=== PATIENT | male | born 1960 | race Caucasian/White ===

== ENCOUNTER 2019-03-09 22:23 | Inpatient (IN) | payer OTHER ==
--- NOTE | 2019-03-09 23:02 | ED ---
Shortness of Breath - HPI Summary HPI Summary: This pt is a 58 y/o M presenting to [facility] with a CC of SOB which has been persistent since the stat of February. 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 The cough started to get worse and caused him to become SOB while exerting himself. The symptoms worsened to when he started to become SOB walking around the house and laying down. He also states that he has CP due to the coughing, which is rated a 7/10 in severity, and he can feel sputum on his throat but his cough is nonproductive. He denies any fevers, N/V/D, headaches, diaphoresis, new edema, abdominal pain, and palpitations. He has no alleviating factors. He has a pertinent family history of HTN but states that he has no chronic diseases. 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 Maintenance - Onset/Duration: Gradual Onset, Lasting Weeks - present since the start of February, Still Present, Worse Since Timing: Constant Current Severity: Severe Dyspnea At: Exertion - Pt also has orthopena Aggravating Factors: Movement, Recumbent Position Alleviating Factors: Nothing Associated Signs & Symptoms: Negative - fevers, N/V/D, headaches, diaphoresis, new edema, abdominal pain, and palpitations., Cough (Nonproductive), Chest Pain w/Cough - Allergy/Home Medications Allergies/Adverse Reactions: Allergies Allergy/AdvReac Type Severity Reaction Status Date / Time No Known Allergies Allergy Verified 03/09/19 22:33 PMH/Surg Hx/FS Hx/Imm Hx Previously Healthy: Yes Infectious Disease History: No Infectious Disease History: Denies: Traveled Outside the [place] in Last 30 Days - Social History Alcohol Use: None Substance Use Type: Reports: None Review of Systems Negative: Fever, Skin Diaphoresis Positive: Chest Pain - from cough. Negative: Palpitations Positive: Shortness Of Breath, Cough - nonproductive Negative: Abdominal Pain, Vomiting, Diarrhea, Nausea Negative: Edema All Other Systems Reviewed And Are Negative: Yes Physical Exam - Summary Physical Exam Summary: Appearance: Well-appearing, Well-nourished, lying in bed comfortably Skin: Warm, dry, no obvious rash Eyes: sclera anicteric, no conjunctival pallor ENT: mucous membranes moist, pharynx appears normal Neck: Supple, nontender Respiratory: Clear to auscultation, no signs of respiratory distress Cardiovascular: Tachycardic No murmurs. Normal distal pulses in tibial and radial bilaterally. Abdomen: Soft, nontender, normal active bowel sounds present Musculoskeletal: Normal, Strength/ROM Intact Neurological: A&Ox3, awake and alert, mentation is normal, speech is fluent and appropriate Psychiatric: affect is normal, does not appear anxious or depressed Triage Information Reviewed: Yes Vital Signs On Initial Exam: Initial Vitals Temp Pulse Resp BP Pulse Ox 96.4 F 129 32 134/103 91 03/09/19 22:31 03/09/19 22:31 03/09/19 22:31 03/09/19 22:31 03/09/19 22:31 Vital Signs Reviewed: Yes Diagnostics - Vital Signs Vital Signs Temp Pulse Resp BP Pulse Ox 03/09/19 22:31 96.4 F 129 32 134/103 91 - Laboratory Result Diagrams: 03/09/19 23:07 03/10/19 06:46 Lab Statement: Any lab studies that have been ordered have been reviewed, and results considered in the medical decision making process. - Radiology CXR Radiology Interpretation Completed By: ED Physician Summary of Radiographic Findings: No acute pathologies. Pending offical review. - CT CT A/P CT Interpretation Completed By: Radiologist Summary of CT Findings: No filling defects suspicious for pulmonary emboli are seen. There is no CT evidence of aortic dissection nor leakage. No aortic aneurysm is appreciated. Focal nonspecific hazy RLL opacity --- possible small focal nonspecific RLL. pneumonitis, eg. No consolidation. Small bilateral pleural effusions. Cardiomegaly. Bilateral peribronchial thickening (possible diffuse bronchitic changes). ED Physician has reviewed this report. - EKG 2226 Cardiac Rate: Tachycardia - 129 BPM EKG Rhythm: Sinus Tachycardia Summary of EKG Findings: ST at 129 BPM, Anterior infarct in the Q wave, no STEMI. Interpreted by Dr. Whitman 222603/09/19. Course/Dx - Course Course Of Treatment: This pt is a 58 y/o M presenting to [facility] with a CC of SOB which has been persistent since the stat february. 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 The cough started to get worse and caused him to become SOB while exerting himself. His PE shows that he is tachycardic but otherwise there were no abnormal findings. His EKG shows ST at 129 BPM, Anterior infarct in the Q wave, no STEMI. His CXR shows no acute pathologies. His CT A/P shows No filling defects suspicious for pulmonary emboli are seen. There is no CT evidence of aortic dissection nor leakage. No aortic aneurysm is appreciated. Focal nonspecific hazy RLL opacity --- possible small focal nonspecific RLL. pneumonitis, eg. No consolidation. Small bilateral pleural effusions. Cardiomegaly. Bilateral peribronchial thickening (possible diffuse bronchitic changes). He has abnormal lab values of Abnormal lab values of a positive D-dimer, B-natriuretuc Peptide, BUN, Creatinine, BUN/Creatinine ratio. Pt's HR jumped up to 169 BPM at 0446 then lowered back down to 98 BPM at 0447 where it stabilized around 120 at 0448. Pt will be admitted to [facility] with a Dx of dysrhythmia - Diagnoses Provider Diagnoses: Dysrhythmia, CHF (congestive heart failure), Cardiomyopathy - Physician Notifications Discussed Care of Patient With: Herber Soto Time Discussed With Above Provider: 03:25 Instructed by Provider To: Other - Discussed with Dr. Soto, hospitalist, at 0325 about the pt's case and a request for an evaluation if he should be admitted to [facility]. Discharge - Sign-Out/Discharge Documenting (check all that apply): Patient Departure - admitted Patient Received Moderate/Deep Sedation with Procedure: No - Discharge Plan Condition: Stable Disposition: ADMITTED TO [facility] - Billing Disposition and Condition Condition: STABLE Disposition: Admitted to [facility] - Attestation Statements Document Initiated by Ady: Yes Documenting Scribe: Angelito Powell Provider For Whom Ady is Documenting (Include Credential): Grady Whitman MD Scribe Attestation: Angelito Guadarrama, baldeved for Grady Whitman MD on 03/10/19 at 6501. Scribe Documentation Reviewed: Yes Provider Attestation: The documentation as recorded by the Angelito riley accurately reflects the service I personally performed and the decisions made by me, Grady Whitman MD Status of Scribe Document: Viewed
[2019-03-09 23:15] LABS: ABS Basophils 0.1 10^3/ul (0-0.2); ABS Eosinophils 0.1 10^3/ul (0-0.6); ABS Lymphocytes 1.9 10^3/ul (1.0-4.8); ABS Monocytes 0.4 10^3/ul (0-0.8); ABS Neutrophils 6.3 10^3/ul (1.5-7.7); Eosinophil % 1.2 %; Hematocrit 50 % (42-52); Hemoglobin 16.9 g/dL (14.0-18.0); Lymphocyte % 21.4 %; Mean Corpuscular HGB Conc 34 g/dL (31-36); Mean Corpuscular Hemoglobin 30 pg (27-31); Mean Corpuscular Volume 89 fL (80-94); Mean Platelet Volume 9.3 fL (7.4-10.4); Nucleated Red Blood Cells % 0.2; Platelet Count 177 10^3/uL (150-450); Red Blood Count 5.58 10^6 /uL (4.18-5.48); Red Cell Distribution Width 13 % (10-15); White Blood Count 8.8 10^3/uL (3.5-10.8)
[2019-03-09 23:30] LABS: Albumin 3.9 g/dL (3.2-5.2); Albumin/Globulin Ratio 1.3 (1-3); BUN/Creatinine Ratio 20.3 (8-20); Calcium 9.9 mg/dL (8.6-10.3); EGFR African American 73.1 (>60); EGFR Non-African American 60.4 (>60); Globulin 2.9 g/dL (2-4); Total Bilirubin 0.5 mg/dL (0.2-1.0); Total Protein 6.8 g/dL (6.4-8.9)
[2019-03-09 23:32] LABS: Troponin I 0.01 ng/mL (<0.04)
[2019-03-09 23:58] LABS: Potassium 4.1 mmol/L (3.5-5.0)
[2019-03-10] MEDS ORDERED: Iohexol 350* (CONTRAST) 500 ML MDV IV ONE (01:14)
[2019-03-10] MEDS ORDERED: NS 0.9% 1000 ML** 1,000 ML IV ONE (06:04)
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
[2019-03-10 07:09] LABS: BUN/Creatinine Ratio 18.8 (8-20); Calcium 9.6 mg/dL (8.6-10.3); EGFR African American 91.8 (>60); EGFR Non-African American 75.9 (>60); HDL Cholesterol 32.4 mg/dL
[2019-03-10 08:24] LABS: Potassium 4.4 mmol/L (3.5-5.0)
[2019-03-10 08:42] LABS: Troponin I 0.01 ng/mL (<0.04)
[2019-03-10] MEDS: Insulin LISPRO* 1 UNITS UNIT SUBCUT SCH ×4 (10:02→21:41)
[2019-03-10 12:45] LABS: TSH (Thyroid Stimulating Horm) 4.58 mcIU/mL (0.34-5.60)
[2019-03-10] MEDS ORDERED: Perflutren Lipid Microsphere* 3 ML VIAL ONE (15:03)
--- NOTE | 2019-03-10 15:14 | PN ---
Subjective Date of Service: 03/10/19 Interval History: Mr. Camacho is not feeling any better today. His SOB remains unchanged. Worse with exertion and laying flat. This has been going on for at least 3 months, progressively worsening. He was very surprised to hear he is a diabetic and attributes this to his SOB even when told otherwise. He denies CP, N/V. No concerns from nursing. Family History: Unchanged from Admission Social History: Unchanged from Admission Past Medical History: Unchanged from Admission Objective Active Medications: Atorvastatin Calcium (Lipitor*) 40 mg PO 1700 [facility] Insulin Human Lispro (Humalog*) [address] [facility]; Protocol Metformin HCl (Glucophage*) 500 mg PO 0800,1700 [facility] Vital Signs - 8 hr 03/10/19 03/10/19 03/10/19 07:26 07:45 08:13 Temperature 98.0 F 97.5 F Pulse Rate 114 107 124 Respiratory 27 16 20 Rate Blood Pressure 105/82 115/81 140/85 (mmHg) O2 Sat by Pulse 94 95 97 Oximetry 03/10/19 11:29 Temperature 97.6 F Pulse Rate 58 Respiratory 22 Rate Blood Pressure 136/93 (mmHg) O2 Sat by Pulse 99 Oximetry Oxygen Devices in Use Now: None Appearance: Middle-aged male sitting in bed in NAD, but obviously dyspneic Eyes: No Scleral Icterus Ears/Nose/Mouth/Throat: Mucous Membranes Moist Neck: NL Appearance and Movements; NL JVP, Trachea Midline Respiratory: - - Crackles to bilat bases, otherwise clear Cardiovascular: NL Sounds; No Murmurs; No JVD, RRR Abdominal: NL Sounds; No Tenderness; No Distention Extremities: No Edema Neurological: Alert and Oriented x 3 Lines/Tubes/Other Access: Clean, Dry and Intact Peripheral IV Nutrition: Taking PO's Result Diagrams: 03/09/19 23:07 03/10/19 06:46 Assess/Plan/Problems-Billing Assessment: Mr. Camacho is a 58 yo M with no significant PMH who presented to the ED with c/o SOB over the last few months that has been progressively worsening and was found to have an abnormal chest CTA. - Patient Problems (1) Systolic congestive heart failure Code(s): I50.20 - UNSPECIFIED SYSTOLIC (CONGESTIVE) HEART FAILURE Comment: - Echo shows EF 20-25% and LV clot measuring 4.5 x 3cm - Appreciate Cardiology consult; spoke with Dr. Faith regarding echo and medication recommendations - Start lisinopril, metoprolol, therapeutic Lovenox (2) Shortness of breath at rest Code(s): R06.02 - SHORTNESS OF BREATH Comment: - Worse with exertion and laying flat - Secondary to CHF, but unclear if there is also a primary respiratory cause - ABG shows good saturation with mild respiratory alkalosis; elevated BNP - CTA shows nonspecific RLL opacity, possible pneumonitis, small bilat pleural effusions, and bilat peribronchial thickening - Suspect there is also HUMPHREY and will need outpatient sleep study - Appreciate Pulmonology consult (3) Sinus tachycardia Code(s): R00.0 - TACHYCARDIA, UNSPECIFIED Comment: - Sinus, consistently in the 110s; approx 1 min of pSVT in the ED - Likely exacerbated by SOB, but exact etiology unclear - TSH normal - Echo pending - Continue to monitor on tele (4) Diabetes mellitus Code(s): E11.9 - TYPE 2 DIABETES MELLITUS WITHOUT COMPLICATIONS Comment: - New diagnosis - A1c 10.8% - Would benefit from outpatient follow up with Endocrinology - Start Lispro SS, metformin (5) Hyperlipidemia Code(s): E78.5 - HYPERLIPIDEMIA, UNSPECIFIED Comment: - Elevated total cholesterol and LDL - ASCVD recommends high-intensity statin d/t 26% 10 year risk of CV event - Start atorvastatin (6) DVT prophylaxis Code(s): Z29.9 - ENCOUNTER FOR PROPHYLACTIC MEASURES, UNSPECIFIED Comment: - SCDs (7) Full code status Code(s): Z78.9 - OTHER SPECIFIED HEALTH STATUS Comment: Status and Disposition: Observation. Anticipate d/c home when medically stable. Will need to establish with a PCP. Attending: Kailyn Booth
--- NOTE | 2019-03-10 16:55 | ECHO ---
*[facility]* [place] [address] Fax #: [phone] Transthoracic Echocardiogram Patient: Tyler Camacho : 1960 Study Date: 03/10/2019 Age: 58 Gender: M HR: 116 bpm Height: 70 in /177.8 cm BSA: 2.41 m^2 Weight: 249.5 lb /113.4 kg BMI: 35.9 kg/m^2 *Orange Grower: * Doreen Paz RDCS RN *Referring Physician: * Herber Soto *Reading Physician: * Adolfo Faith MD Indications: SOB. Conclusions Summary: 1. Left ventricle: The cavity size is dilated. Wall thickness is normal. Systolic function is severely reduced. The estimated ejection fraction is 20-25%. Severe diffuse hypokinesis. There is a large mass in left ventricle attached to apical septal wall measuring 4.5 cm by 3 cm 2. Right ventricle: Systolic function is mildly to moderately reduced. 3. Mitral valve: There is trivial regurgitation. 4. Aortic valve: Transvalvular velocity is within the normal range. There is no evidence of stenosis. 5. Tricuspid valve: There is no significant regurgitation. 6. Pericardium, extracardiac: There is no significant pericardial effusion. 7. Study data: No prior study is available for comparison. 8. Report discussed with Leighann Cadet NP. Study data: Transthoracic echocardiogram. Procedure: Transthoracic echocardiography was performed. Image quality was fair. The study was technically limited due to body habitus. Definity 5 ml IV was given. Image enhancement administered by Santos Morel RN. Complete 2D, spectral Doppler, and color flow Doppler. Location: Procedure room. Patient room number: 444-01. No prior study is available for comparison. Rhythm: Tachycardia with frequent PVCs. Findings Left ventricle: The cavity size is dilated. Wall thickness is normal. Systolic function is severely reduced. The estimated ejection fraction is 20-25%. Severe diffuse hypokinesis. There is a large mass in left ventricle attached to apical septal wall measuring 4.5 cm by 3 cm Right ventricle: Systolic function is mildly to moderately reduced. Left atrium: The atrium is moderately dilated. Mitral valve: There is no evidence of stenosis. There is trivial regurgitation. Aortic valve: Transvalvular velocity is within the normal range. There is no evidence of stenosis. There is no regurgitation. Tricuspid valve: There is no significant regurgitation. Pericardium: There is no significant pericardial effusion. Measurements Left ventricle Value Ref Aortic valve Value Ref GISSELL, LAX 5.5 cm 4.2 - 5.8 Leaflet sep 2.0 cm ----- ESD, LAX (H) 5.1 cm 2.5 - 4.0 Peak v, S 0.7 m/sec ----- FS, LAX (L) 7 % 25 - 43 VTI, S 8.4 cm ----- PW, ED, LAX 0.8 cm 0.6 - 1.0 Mean grad, S 1.0 mm Hg ----- E', lat royal, TDI (L) 9.0 cm/sec >=10.0 Peak grad, S 2.0 mm Hg ----- E/e', lat royal, TDI 12 --------- LVOT/AV, VTI ratio 0.76 ----- E', med royal, TDI (L) 3.0 cm/sec >=7.0 E/e', med royal, TDI 37 --------- Mitral valve Value Ref E', avg, TDI 6.0 cm/sec --------- Peak E 1.1 m/sec ----- E/e', avg, TDI (H) 18 <=14 Decel time 127 ms ----- LVOT Value Ref Pulmonic valve Value Ref Peak collins, S 0.6 m/sec --------- Peak v, S 0.4 m/sec ----- VTI, S 6.4 cm --------- Peak grad, S 1.0 mm Hg ----- Peak grad, S 1 mm Hg --------- Mean grad, S 1 mm Hg --------- Tricuspid valve Value Ref TR peak v 2.7 m/sec <=2.8 Right ventricle Value Ref Peak RV-RA grad, S 29 mm Hg ----- GISSELL, LAX 3.4 cm --------- GISSELL minor ax, A4C 3.6 cm --------- Aortic root Value Ref Pressure, S 44 mm Hg --------- Root diam, ED MM 3.10 cm ----- Left atrium Value Ref Aortic arch Value Ref LA ID 4.5 cm --------- Arch diam 2.2 cm ----- ML dim, A4C 4.8 cm --------- SI dim, A4C 5.3 cm --------- Decending aorta Value Ref Vol/bsa, ES, A/L 30 ml/m^2 16 - 34 Radhames peak collins 0.5 m/sec ----- Right atrium Value Ref Pulmonary artery Value Ref ML dim, ES, A4C 4.2 cm 2.6 - 4.4 Pressure, S 43.0 mm Hg ----- SI dim, ES, A4C (H) 5.7 cm 3.4 - 5.3 Estimated RAP 15 mm Hg --------- Inferior vena cava Value Ref Diam 2.6 cm ----- Legend: (L) and (H) carine values outside specified reference range. Prepared and electronically signed by Adolfo Faith MD 03/10/2019 16:54
[2019-03-10] MEDS ORDERED: metFORMIN* 500 MG TAB PO SCH (17:00)
[2019-03-10] MEDS ORDERED: Atorvastatin* 40 MG TAB PO SCH (17:00)
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
[2019-03-10] MEDS: Lisinopril TAB* 5 MG PO SCH (17:31)
[2019-03-10] MEDS: Enoxaparin(*) 100 MG/ML SYR SUBCUT SCH (17:31)
[2019-03-10 17:42] LABS: C Reactive Protein 10.92 mg/L (<8.01)
[2019-03-10] MEDS ORDERED: Metoprolol Tartrate TAB* 25 MG PO SCH (21:00)
[2019-03-11] MEDS ORDERED: Enoxaparin(*) 150 MG/ML 1 ML SYRINGE SUBCUT SCH (05:24)
[2019-03-11] MEDS: Enoxaparin(*) 100 MG/ML SYR SUBCUT SCH (06:04)
[2019-03-11 06:33] LABS: BUN/Creatinine Ratio 16.8 (8-20); Calcium 9.2 mg/dL (8.6-10.3); EGFR African American 98.5 (>60); EGFR Non-African American 81.4 (>60); Magnesium 1.7 mg/dL (1.9-2.7)
[2019-03-11] MEDS ORDERED: Magnesium Sulfate IV* 3 GM in NS 0.9% 100 ML* 100 ML IVPB ONE (08:23)
[2019-03-11] MEDS: Metoprolol Succinate XL TAB* 25 MG PO SCH (08:46)
[2019-03-11] MEDS: Lisinopril TAB* 5 MG PO SCH (08:47)
[2019-03-11] MEDS: metFORMIN* 500 MG TAB PO SCH ×2 (08:47→17:15)
[2019-03-11] MEDS: Insulin LISPRO* 1 UNITS UNIT SUBCUT SCH ×4 (08:48→21:21)
[2019-03-11] MEDS ORDERED: Furosemide IV* 10 MG/ML VIAL (40 MG) IV ONE (09:54)
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
--- NOTE | 2019-03-11 12:50 | PN ---
Subjective Date of Service: 03/11/19 Interval History: Mr. Camacho is feeling better today. His SOB is improved. He is concerned about his new diagnoses, but accepting and agreeable to all recommended treatment. Denies CP, SOB, N/V. He would like me to speak with his later. No concerns from nursing. Family History: Unchanged from Admission Social History: Unchanged from Admission Past Medical History: Unchanged from Admission Objective Active Medications: Atorvastatin Calcium (Lipitor*) 80 mg PO 1700 KATY Furosemide (Lasix Tab*) 40 mg PO DAILY KATY Insulin Human Lispro (Humalog*) 0 units SUBCUT ACHS KATY; Protocol Lisinopril (Prinivil Tab*) 5 mg PO DAILY KATY Metformin HCl (Glucophage*) 500 mg PO 0800,1700 KATY Metoprolol Succinate (Toprol Xl Tab*) 25 mg PO DAILY KATY Rivaroxaban (Xarelto(*)) 20 mg PO DAILY [facility] Vital Signs - 8 hr 03/11/19 03/11/19 03/11/19 07:42 08:00 12:08 Temperature 97.8 F 98.1 F Pulse Rate 55 113 Respiratory 20 20 20 Rate Blood Pressure 122/78 102/85 (mmHg) O2 Sat by Pulse 93 91 Oximetry Oxygen Devices in Use Now: None Appearance: Middle-aged male sitting in bed in NAD Eyes: No Scleral Icterus Ears/Nose/Mouth/Throat: Mucous Membranes Moist Neck: NL Appearance and Movements; NL JVP, Trachea Midline Respiratory: Symmetrical Chest Expansion and Respiratory Effort, - - Fine crackles to bilat bases, R<L, otherwise clear Cardiovascular: NL Sounds; No Murmurs; No JVD, RRR Abdominal: NL Sounds; No Tenderness; No Distention Extremities: No Edema Neurological: Alert and Oriented x 3 Lines/Tubes/Other Access: Clean, Dry and Intact Peripheral IV Nutrition: Taking PO's Result Diagrams: 03/09/19 23:07 03/11/19 06:04 Assess/Plan/Problems-Billing Assessment: Mr. Camacho is a 58 yo M with no significant PMH who presented to the ED with c/o SOB over the last few months that has been progressively worsening and was found to have an abnormal chest CTA. - Patient Problems (1) Systolic congestive heart failure Code(s): I50.20 - UNSPECIFIED SYSTOLIC (CONGESTIVE) HEART FAILURE Comment: - Echo shows EF 20-25% and LV thrombus measuring 4.5 x 3cm - Appreciate Cardiology consult; will need close outpatient follow up and likely cath in the future once thrombus is resolved - Life Vest at discharge, already ordered by QUIN Black - Continue lisinopril, metoprolol; Xarelto and furosemide started by Cardiology (2) Shortness of breath at rest Code(s): R06.02 - SHORTNESS OF BREATH Comment: - Worse with exertion and laying flat, but overall improved today - Secondary to CHF - Appreciate Pulmonology consult; suspects this is all cardiac related, but does recommend outpatient sleep study as he is high risk for HUMPHREY (3) Sinus tachycardia Code(s): R00.0 - TACHYCARDIA, UNSPECIFIED Comment: - Sinus, consistently in the 110s; approx 1 min of pSVT in the ED - Likely just compensatory d/t decompensated HF - TSH normal - Continue to monitor on tele (4) Diabetes mellitus Code(s): E11.9 - TYPE 2 DIABETES MELLITUS WITHOUT COMPLICATIONS Comment: - New diagnosis - A1c 10.8% - Would benefit from outpatient follow up with Endocrinology - Continue Lispro SS, metformin (5) Hyperlipidemia Code(s): E78.5 - HYPERLIPIDEMIA, UNSPECIFIED Comment: - Elevated total cholesterol and LDL - ASCVD recommends high-intensity statin d/t 26% 10 year risk of CV event - Continue atorvastatin (6) DVT prophylaxis Code(s): Z29.9 - ENCOUNTER FOR PROPHYLACTIC MEASURES, UNSPECIFIED Comment: - Lovenox/Xarelto (7) Full code status Code(s): Z78.9 - OTHER SPECIFIED HEALTH STATUS Comment: Status and Disposition: Observation. Anticipate d/c home when medically stable. Will need to establish with a PCP. Attending: Jennifer Soto
--- NOTE | 2019-03-11 16:11 | PN ---
Progress Note - Progress Note Date of Service: 03/11/19 - Pulm f/u note Note: Pt seen and examined at bedside. Pt report improvement in SOB Active Medications Generic Name Dose Route Start Last Admin Trade Name Gabriel PRN Reason Stop Dose Admin Atorvastatin Calcium 80 mg 03/11/19 17:00 Lipitor* PO 1700 KATY Furosemide 40 mg 03/12/19 09:00 Lasix Tab* PO DAILY KATY Insulin Human Lispro 0 units 03/10/19 07:30 03/11/19 12:35 Humalog* SUBCUT 12 unit ACHS [facility] Administration Protocol Lisinopril 5 mg 03/10/19 17:00 03/11/19 08:47 Prinivil Tab* PO 5 mg DAILY KATY Administration Metformin HCl 500 mg 03/11/19 08:00 03/11/19 08:47 Glucophage* PO 500 mg 0800,1700 KATY Administration Metoprolol Succinate 25 mg 03/11/19 09:00 03/11/19 08:46 Toprol Xl Tab* PO 25 mg DAILY KATY Administration Rivaroxaban 20 mg 03/11/19 17:00 Xarelto(*) PO DAILY KATY Vital Signs Temp Pulse Resp BP Pulse Ox 98.1 F 113 20 102/85 91 03/11/19 12:08 03/11/19 12:08 03/11/19 12:08 03/11/19 12:08 03/11/19 12:08 Laboratory Results - last 24 hr 03/10/19 03/10/19 03/10/19 06:46 06:46 16:37 ESR 5 Sodium 139 Potassium 4.4 Chloride 107 Carbon Dioxide 21 L Anion Gap 11 BUN 19 Creatinine 1.01 Est GFR ( Amer) 91.8 Est GFR (Non-Af Amer) 75.9 BUN/Creatinine Ratio 18.8 Glucose 293 H POC Glucose (mg/dL) 124 H Calcium 9.6 Magnesium Troponin I 0.01 C-Reactive Protein 10.92 H Triglycerides 249 Cholesterol 256 LDL Cholesterol 174 HDL Cholesterol 32.4 TSH 4.58 03/10/19 03/11/19 03/11/19 19:19 06:04 07:53 ESR Sodium 138 Potassium 4.0 Chloride 108 Carbon Dioxide 22 Anion Gap 8 BUN 16 Creatinine 0.95 Est GFR ( Amer) 98.5 Est GFR (Non-Af Amer) 81.4 BUN/Creatinine Ratio 16.8 Glucose 222 H POC Glucose (mg/dL) 138 H 195 H Calcium 9.2 Magnesium 1.7 L Troponin I C-Reactive Protein Triglycerides Cholesterol LDL Cholesterol HDL Cholesterol TSH 03/11/19 12:03 ESR Sodium Potassium Chloride Carbon Dioxide Anion Gap BUN Creatinine Est GFR ( Amer) Est GFR (Non-Af Amer) BUN/Creatinine Ratio Glucose POC Glucose (mg/dL) 312 H Calcium Magnesium Troponin I C-Reactive Protein Triglycerides Cholesterol LDL Cholesterol HDL Cholesterol TSH Gen: Middle-aged male sitting in bed in NAD HEENT: No Scleral Icterus, Mucous Membranes Moist Neck: NL Appearance and Movements; NL JVP, Trachea Midline Respiratory: Fine crackles to bilat bases, R<L Cardiovascular: NL Sounds; No Murmurs; No JVD, RRR Abdominal: NL Sounds; No Tenderness; No Distention Extremities: No Edema Neurological: Alert and Oriented x 3 I/R: 58 yo M with no significant PMH who presented to the ED with c/o SOB over the last few months that has been progressively worsening and was found to have an abnormal chest CTA. Pt with new finding of sys CHF Reports improvement in sx Will need sleep study as out pt CT chest findings are not concerning Pt not requiring O2, ambulated without SOB Cardiac testing as out pt
[2019-03-11] MEDS: Atorvastatin* 80 MG TAB PO SCH (17:15)
[2019-03-11] MEDS: Rivaroxaban TAB(*) 20 MG TAB PO SCH (17:15)
[2019-03-12 07:05] LABS: BUN/Creatinine Ratio 15.7 (8-20); Calcium 9.3 mg/dL (8.6-10.3); EGFR African American 74.5 (>60); EGFR Non-African American 61.6 (>60); Potassium 3.9 mmol/L (3.5-5.0)
[2019-03-12] MEDS ORDERED: Magnesium Sulfate 2 GM IV* 2 GM/50 ML BAG IVPB ONE ×2 (08:15→08:40)
[2019-03-12] MEDS ORDERED: Pneumococcal *Vac Polyvalent 0.5 ML VIAL IM ONE (09:00)
[2019-03-12] MEDS ORDERED: Furosemide TAB* 40 MG PO SCH (09:00)
--- NOTE | 2019-03-12 09:06 | PN ---
<Sofia Mc - Last Filed: 03/12/19 09:01> Subjective Date of Service: 03/12/19 - newly diagnosed decompensated SHF, Apical thrombus Interval History: No events last night. Patient was fitted and wearing lifevest. States he urinated " alot" after being given IV Lasix 40mg x1 yesterday. He has been up and ambulating the halls with no complaints of dizziness, lightheadedness, palpitations, sensation of heart racing. Does continue to c/o productive cough now stating sputum has a green tinge? No fever or chills. cough is worse lying in supine position. + chest pain described as ache after having a coughing fit again not related to activity. Medications Active Medications: Atorvastatin Calcium (Lipitor*) 80 mg PO 1700 [facility] Last Admin: 03/11/19 17:15 Dose: 80 mg Furosemide (Lasix Tab*) 40 mg PO DAILY [facility] Magnesium Sulfate (Magnesium Sulfate 2 Gm Iv*) 2 gm in 50 mls @ 50 mls/hr IVPB ONCE ONE Stop: 03/12/19 09:14 Insulin Human Lispro (Humalog*) [address] [facility]; Protocol Last Admin: 03/11/19 21:21 Dose: 2 unit Lisinopril (Prinivil Tab*) 5 mg PO DAILY [facility] Metformin HCl (Glucophage*) 500 mg PO 0800,1700 [facility] Last Admin: 03/11/19 17:15 Dose: 500 mg Metoprolol Succinate (Toprol Xl Tab*) 25 mg PO DAILY [facility] Last Admin: 03/11/19 08:46 Dose: 25 mg Rivaroxaban (Xarelto(*)) 20 mg PO DAILY [facility] Last Admin: 03/11/19 17:15 Dose: 20 mg Objective Vital Signs: Temp Pulse Resp BP Pulse Ox 98 F 109 20 94/75 94 03/12/19 03:15 03/12/19 03:15 03/12/19 08:00 03/12/19 03:15 03/12/19 03:15 Oxygen Devices in Use Now: None Appearance: lyng in bed, offers no complaints except + persistant cough now productive and " green tinge" Eyes: No Scleral Icterus Ears/Nose/Mouth/Throat: NL Teeth, Lips, Gums, Mucous Membranes Moist, - - No post nasal drip noted Neck: NL Appearance and Movements; NL JVP Respiratory: Symmetrical Chest Expansion and Respiratory Effort, Clear to Auscultation Cardiovascular: - - tachy S1, S2 RRR, no murmur or rub/gallop Lymphatic: No Cervical Adenopathy Extremities: No Edema Skin: No Rash or Ulcers Neurological: Alert and Oriented x 3 Lines/Tubes/Other Access: Clean, Dry and Intact Peripheral IV Laboratory Results: 03/09/19 23:07 03/12/19 06:25 Total Bilirubin 0.50 mg/dL (0.2-1.0) 03/09/19 23:07 AST 24 U/L (13-39) 03/09/19 23:07 ALT 30 U/L (7-52) 03/09/19 23:07 Alkaline Phosphatase 79 U/L (34-104) 03/09/19 23:07 B-Natriuretic Peptide 1087 pg/mL (<=100) H 03/09/19 23:07 Total Protein 6.8 g/dL (6.4-8.9) 03/09/19 23:07 Albumin 3.9 g/dL (3.2-5.2) 03/09/19 23:07 Globulin 2.9 g/dL (2-4) 03/09/19 23:07 Albumin/Globulin Ratio 1.3 (1-3) 03/09/19 23:07 Triglycerides 249 mg/dL 03/10/19 06:46 Cholesterol 256 mg/dL 03/10/19 06:46 LDL Cholesterol 174 mg/dL 03/10/19 06:46 HDL Cholesterol 32.4 mg/dL 03/10/19 06:46 TSH 4.58 mcIU/mL (0.34-5.60) 03/10/19 06:46 03/09/19 03/10/19 23:07 06:46 Troponin I 0.01 0.01 Laboratory Results - last 24 hr 03/11/19 03/11/19 03/11/19 12:03 16:15 20:18 Sodium Potassium Chloride Carbon Dioxide Anion Gap BUN Creatinine Est GFR ( Amer) Est GFR (Non-Af Amer) BUN/Creatinine Ratio Glucose POC Glucose (mg/dL) 312 H 193 H 57 L Calcium Magnesium 03/11/19 03/12/19 03/12/19 20:23 06:25 06:25 Sodium 140 Potassium 3.9 Chloride 106 Carbon Dioxide 27 Anion Gap 7 BUN 19 Creatinine 1.21 H Est GFR ( Amer) 74.5 Est GFR (Non-Af Amer) 61.6 BUN/Creatinine Ratio 15.7 Glucose 200 H POC Glucose (mg/dL) 150 H Calcium 9.3 Magnesium 1.8 L 03/12/19 07:42 Sodium Potassium Chloride Carbon Dioxide Anion Gap BUN Creatinine Est GFR ( Amer) Est GFR (Non-Af Amer) BUN/Creatinine Ratio Glucose POC Glucose (mg/dL) 161 H Calcium Magnesium Diagnostic Imaging: *[facility]* [place] [address] Fax #: [phone] Transthoracic Echocardiogram Patient: Tyler Camacho : 1960 Study Date: 03/10/2019 Age: 58 Gender: M HR: 116 bpm Height: 70 in /177.8 cm BSA: 2.41 m^2 Weight: 249.5 lb /113.4 kg BMI: 35.9 kg/m^2 *Cloth Washer: * Doreen Paz HAVEN RN *Referring Physician: * Herber Soto *Reading Physician: * Adolfo Faith MD Indications: SOB. Conclusions Summary: 1. Left ventricle: The cavity size is dilated. Wall thickness is normal. Systolic function is severely reduced. The estimated ejection fraction is 20-25%. Severe diffuse hypokinesis. There is a large mass in left ventricle attached to apical septal wall measuring 4.5 cm by 3 cm 2. Right ventricle: Systolic function is mildly to moderately reduced. 3. Mitral valve: There is trivial regurgitation. 4. Aortic valve: Transvalvular velocity is within the normal range. There is no evidence of stenosis. 5. Tricuspid valve: There is no significant regurgitation. 6. Pericardium, extracardiac: There is no significant pericardial effusion. 7. Study data: No prior study is available for comparison. 8. Report discussed with Leighann Cadet NP. Study data: Transthoracic echocardiogram. Procedure: This report is only to be considered final once signed by the Provider(s) as displayed in the "<Electronically Signed by >" field (s). Absence of a signature indicates the report is in a draft status and still needs to be finalized. In the event this document was created by someone other than the signing Provider, the individual initiating the document will be listed in the "Entered by:" or "Dictated by:" barrett. EKG Data: 03/11/2019 ECG; Sinus tachycardia rate 107 with frequent PVCs. Telemetry; reviewed. Sinus rhythm to sinus tachycardia HR 90-110's frequent PVCs , no NSVT since 03/11/2019 Assessment/Plan #1 Newly Diagnosed Severe LV Function; presented with decompensation ( orthopnea , BUCKLEY, decreased exercise tolerance, cough with associated chest pain). NYHA Function Class 3 stage C. diuresed well last night with only 40mg IV LAsix x1. Will convert Lasix to 20mg/day. On Toprol 25mg/day. HR still 90-110's however, SBP in 90's unable to uptitrate. He is on Lisinopril 5mg/day with no c/o lightheadedness, dizziness. Unable to start Aldactone at this time due to SBP. Will continue current medication regimen. Patient needs eventual LHC once Apical thrombus resolves will address in follow up. continue strint I+O's, daily weights, NA+ and Fluid restricted diet. Patient is wearing lifevest given etiology of SHF with LVEF 20-25% is unclear at this time. #2 4.5x3cm apical thrombus; Patient on Xarelto 20mg PO daily with evening meal. No c/o bleeding since OAC initiaton. will need f/u echo eventually to re evaluate. #3 Ventricular Ectopy; Patient continues to have frequent PVCs he is asymptomatic no NSVT since 03/11/2019. Mag being replaced. Keep Mag>2, K>4. #4 Newly Diagnosed HLD; LDL goal < 70 given newly found uncontrolled DM. on statin therapy will need f/u FLP and LFT in 6-8 weeks. #5 disposition pending course. Patient full code. Will d/w Dr. Quezada Attending: Katey Quezada <Katey Quezada - Last Filed: 03/12/19 17:54> Medications Active Medications: Atorvastatin Calcium (Lipitor*) 80 mg PO 1700 [facility] Last Admin: 03/12/19 15:29 Dose: 80 mg Furosemide (Lasix Tab*) 20 mg PO DAILY [facility] Insulin Human Lispro (Humalog*) [address] [facility]; Protocol Last Admin: 03/12/19 13:18 Dose: 9 unit Lisinopril (Prinivil Tab*) 5 mg PO DAILY [facility] Last Admin: 03/12/19 09:24 Dose: 5 mg Metformin HCl (Glucophage*) 500 mg PO 0800,1700 [facility] Last Admin: 03/12/19 15:28 Dose: 500 mg Metoprolol Succinate (Toprol Xl Tab*) 25 mg PO DAILY [facility] Last Admin: 03/12/19 09:24 Dose: 25 mg Rivaroxaban (Xarelto(*)) 20 mg PO DAILY [facility] Last Admin: 03/12/19 09:24 Dose: 20 mg Objective Vital Signs: Temp Pulse Resp BP Pulse Ox 97.4 F 66 18 118/85 97 03/12/19 11:25 03/12/19 11:25 03/12/19 11:25 03/12/19 11:25 03/12/19 11:25 Laboratory Results: 03/09/19 23:07 03/12/19 06:25 Total Bilirubin 0.50 mg/dL (0.2-1.0) 03/09/19 23:07 AST 24 U/L (13-39) 03/09/19 23:07 ALT 30 U/L (7-52) 03/09/19 23:07 Alkaline Phosphatase 79 U/L (34-104) 03/09/19 23:07 B-Natriuretic Peptide 1087 pg/mL (<=100) H 03/09/19 23:07 Total Protein 6.8 g/dL (6.4-8.9) 03/09/19 23:07 Albumin 3.9 g/dL (3.2-5.2) 03/09/19 23:07 Globulin 2.9 g/dL (2-4) 03/09/19 23:07 Albumin/Globulin Ratio 1.3 (1-3) 03/09/19 23:07 Triglycerides 249 mg/dL 03/10/19 06:46 Cholesterol 256 mg/dL 03/10/19 06:46 LDL Cholesterol 174 mg/dL 03/10/19 06:46 HDL Cholesterol 32.4 mg/dL 03/10/19 06:46 TSH 4.58 mcIU/mL (0.34-5.60) 03/10/19 06:46 03/09/19 03/10/19 23:07 06:46 Troponin I 0.01 0.01 Assessment/Plan The patient was seen and examined by me personally. Cough persists, cup at bedside with white foamy plegm. Improved orthopnea post diuresis. Exam: Pulmonary: rales, fine, Cardiac: summation ana maria. Abdomen: severe centripetal obesity. Extremities: no edema. A/P: 58 yo with CHF, subacute with severe LV disfunction. Improving with medical management. Agree with above and -Consider adding aldactone in AM. -Recommend changing ACEI to ARB as may need entresto and cough likely CHF induced, but ACEI could be contributing as sell. Consider losartan 25 mg or Atacand 2 mg qhs. -Consider SGLT2 inhibitor instead of glucophage for DM and depressed EF based on date with improve morbidity and mortality. The patient and family are aware that he can expect frequent small adjustments in his medications as we titrate carefully.
[2019-03-12] MEDS: Insulin LISPRO* 1 UNITS UNIT SUBCUT SCH ×4 (09:21→21:32)
[2019-03-12] MEDS: Rivaroxaban TAB(*) 20 MG TAB PO SCH (09:24)
[2019-03-12] MEDS: Metoprolol Succinate XL TAB* 25 MG PO SCH (09:24)
[2019-03-12] MEDS: metFORMIN* 500 MG TAB PO SCH ×2 (09:24→15:28)
[2019-03-12] MEDS: Lisinopril TAB* 5 MG PO SCH (09:24)
[2019-03-12] MEDS ORDERED: Potassium Chlor TAB* 20 MEQ TAB.ER PO ONE (11:14)
--- NOTE | 2019-03-12 11:21 | PN ---
Subjective Date of Service: 03/12/19 Interval History: Mr. Camacho is feeling better today. He has been up ambulating without significant SOB. He does note that his cough has become productive and sputum appears slightly yellow/green in color. He feels this is all postnasal drip. Denies CP, N/V, dizziness. No concerns from nursing. Family History: Unchanged from Admission Social History: Unchanged from Admission Past Medical History: Unchanged from Admission Objective Active Medications: Atorvastatin Calcium (Lipitor*) 80 mg PO 1700 [facility] Furosemide (Lasix Tab*) 20 mg PO DAILY [facility] Insulin Human Lispro (Humalog*) 0 units SUBCUT [facility]; Protocol Lisinopril (Prinivil Tab*) 5 mg PO DAILY [facility] Metformin HCl (Glucophage*) 500 mg PO 0800,1700 [facility] Metoprolol Succinate (Toprol Xl Tab*) 25 mg PO DAILY [facility] Rivaroxaban (Xarelto(*)) 20 mg PO DAILY [facility] Vital Signs - 8 hr 03/12/19 08:00 Respiratory 20 Rate Oxygen Devices in Use Now: None Appearance: Middle-aged male sitting in bed in NAD Eyes: No Scleral Icterus Ears/Nose/Mouth/Throat: Mucous Membranes Moist Neck: NL Appearance and Movements; NL JVP, Trachea Midline Respiratory: Symmetrical Chest Expansion and Respiratory Effort, Clear to Auscultation Cardiovascular: NL Sounds; No Murmurs; No JVD, RRR Abdominal: NL Sounds; No Tenderness; No Distention Extremities: No Edema Neurological: Alert and Oriented x 3 Lines/Tubes/Other Access: Clean, Dry and Intact Peripheral IV Nutrition: Taking PO's Result Diagrams: 03/09/19 23:07 03/12/19 06:25 Assess/Plan/Problems-Billing Assessment: Mr. Camacho is a 58 yo M with no significant PMH who presented to the ED with c/o SOB over the last few months that has been progressively worsening and was found to have an abnormal chest CTA. - Patient Problems (1) Systolic congestive heart failure Code(s): I50.20 - UNSPECIFIED SYSTOLIC (CONGESTIVE) HEART FAILURE Comment: - Echo shows EF 20-25% and LV thrombus measuring 4.5 x 3cm - Appreciate Cardiology consult; will need close outpatient follow up and cath in the future once thrombus is resolved - Life Vest already in place - Continue lisinopril, metoprolol, Xarelto, furosemide (2) Shortness of breath at rest Code(s): R06.02 - SHORTNESS OF BREATH Comment: - Worse with exertion and laying flat, but overall improved today - Secondary to CHF - Appreciate Pulmonology consult; suspects this is all cardiac related, but does recommend outpatient sleep study as he is high risk for HUMPHREY (3) Sinus tachycardia Code(s): R00.0 - TACHYCARDIA, UNSPECIFIED Comment: - Improved, but still occasional tachycardia; approx 1 min of pSVT in the ED - Likely just compensatory d/t decompensated HF - TSH normal - Continue to monitor on tele - Metoprolol cannot be uptitrated d/t soft BPs (4) Diabetes mellitus Code(s): E11.9 - TYPE 2 DIABETES MELLITUS WITHOUT COMPLICATIONS Comment: - New diagnosis - A1c 10.8% - Would benefit from outpatient follow up with Endocrinology - Cardiology recommends he be d/c'd on Jardiance d/t CV benefits; this is nonformulary, so not able to start in the hospital - Continue Lispro SS, metformin (5) Hyperlipidemia Code(s): E78.5 - HYPERLIPIDEMIA, UNSPECIFIED Comment: - Elevated total cholesterol and LDL - ASCVD recommends high-intensity statin d/t 26% 10 year risk of CV event - Continue atorvastatin (6) DVT prophylaxis Code(s): Z29.9 - ENCOUNTER FOR PROPHYLACTIC MEASURES, UNSPECIFIED Comment: - Xarelto (7) Full code status Code(s): Z78.9 - OTHER SPECIFIED HEALTH STATUS Comment: Status and Disposition: Observation. Anticipate d/c home when medically stable, possibly tomorrow. Will need to establish with a PCP and will need close f/u with Cardiology. Attending: Jennifer Soto
[2019-03-12] MEDS ORDERED: Furosemide TAB* 40 MG ONE (15:25)
[2019-03-12] MEDS: Atorvastatin* 80 MG TAB PO SCH (15:29)
[2019-03-12] MEDS: Metoprolol Tartrate IV* 1 MG/ML 5 ML VIAL IV PRN (20:22)
[2019-03-13] MEDS: Metoprolol Tartrate IV* 1 MG/ML 5 ML VIAL IV PRN (03:36)
[2019-03-13 06:14] LABS: BUN/Creatinine Ratio 19.6 (8-20); Calcium 9.8 mg/dL (8.6-10.3); EGFR African American 81.5 (>60); EGFR Non-African American 67.3 (>60); Magnesium 1.9 mg/dL (1.9-2.7); Potassium 3.6 mmol/L (3.5-5.0)
[2019-03-13] MEDS: Metoprolol Succinate XL TAB* 25 MG PO SCH (08:40)
[2019-03-13] MEDS: metFORMIN* 500 MG TAB PO SCH (08:40)
[2019-03-13] MEDS: Rivaroxaban TAB(*) 20 MG TAB PO SCH (08:40)
[2019-03-13] MEDS: Lisinopril TAB* 5 MG PO SCH (08:40)
[2019-03-13] MEDS: Insulin LISPRO* 1 UNITS UNIT SUBCUT SCH ×2 (08:41→13:13)
[2019-03-13] MEDS ORDERED: Magnesium Sulfate 1 GM IV* 1 GM/100 ML BAG IV ONE (08:53)
[2019-03-13] MEDS ORDERED: Potassium Chlor TAB* 20 MEQ TAB.ER PO ONE (08:55)
[2019-03-13] MEDS ORDERED: Furosemide TAB* 40 MG PO SCH (09:00)
[2019-03-13 12:11] VITALS: BP 103/78
--- NOTE | 2019-03-14 09:24 | DS ---
DISCHARGE SUMMARY: DATE OF ADMISSION: 03/10/19 DATE OF DISCHARGE: 03/13/19 ADMITTING PROVIDER: Herber Soto MD PRIMARY CARE PHYSICIAN: None (does plan to establish with Dr. Silvia Dale, his 's PCP). CHIEF COMPLAINT: Progressive shortness of breath, orthopnea. PRINCIPAL DIAGNOSES: New acute and severe systolic congestive heart failure; large LV thrombus; new diabetes mellitus; tachycardia. HISTORY OF PRESENT ILLNESS AND HOSPITAL COURSE: Tyler Camacho is a 58-year-old male with no known past medical history, but he had not seen a primary care physician in 15 years (2003). Please see H and P of Dr. Herber Soto for full details, but ever since the fall of 2017, he noticed a persistent cough, intermittent shortness of breath, rhinorrhea, and these symptoms accelerated in the past month. He was noticed dyspneic again on exertion, progressive orthopnea, having to sleep with elevated head of the bed more than usual and eventually he was unable to sleep at all due to shortness of breath. He presented to [facility] Emergency Room and his initial workup included BNP of 1087, glucose 349, creatinine of 1.23, D-dimer of 780. His initial chest x-ray demonstrated mild pattern of interstitial opacification, suggestive of early pulmonary interstitial edema. He had a CT chest angiogram given that elevated D -dimer and tachycardia, which did not show pulmonary embolism or evidence of aortic dissection or aneurysm. There was a focal nonspecific hazy right lower lobe opacity. There were small bilateral pleural effusions and cardiomegaly. He was admitted to hospitalist service for acute CHF and new diabetes as A1c would return at 10.8, was seen in consultation by Cardiology and a transthoracic echocardiogram showed severe systolic dysfunction with EF of 20% to 25%, severe diffuse hypokinesis. There was a large mass in the left ventricle attached to the apical septal wall measuring 4.5 cm x 3 cm suggestive of LV thrombus. Cardiology discussed the anticoagulation options with him and they ultimately decided on the DOAC Xarelto 20 mg daily instead of Coumadin. They suggested that he will need further ischemic workup without left heart catheterization once the LV thrombus has been addressed. He was fit with a LifeVest, which he seemed to be tolerating well. He was started on beta-allie , DAILY inhibitor (though was switched to ARB on discharge) with the understanding it may benefit him to go on Entresto along with a statin medication. His weight on admission is listed as 113.4 kg and on discharge as 113.0 kg on day of discharge. Blood pressures were on the soft side with 90s to 100s/60s to 70s, which limited uptitration of some of his CHF medications. His LDL was 174, he has been started on Lipitor 80 mg. Daily weights and low- sodium diet were emphasized and he plans to establish with his 's primary care physician, Dr. Dale and follow up with Dr. Faith and Sofia Mc NP of Cardiology. DISCHARGE MEDICATIONS: 1. Atorvastatin 80 mg daily (new). 2. Empagliflozin (Jardiance) 10 mg daily (new). 3. Lasix 20 mg daily (new). 4. Losartan 25 mg daily (new). 5. Metformin 1000 mg p.o. b.i.d. (new). 6. Metoprolol succinate 25 mg daily (new). 7. Xarelto 20 mg daily (new). He was also given a prescription for freestyle or other glucometer. FOLLOWUP: He has followup scheduled with Sofia Mc NP of Cardiology on at 2 p.m., Dr. Adolfo Faith on 05/07/19 at 08:30 p.m., and Dr. Dale recommended within 7 to 10 days. He will need consideration for establishment with office rn given his severe new onset diabetes mellitus and cardiac comorbidities. He will need to repeat echocardiogram as per Cardiology given the need to confirm resolution of the LV thrombus. CONDITION: Guarded, but improved. DISPOSITION: Home. TIME SPENT ON DISCHARGE: Forty minutes. [id number]/[facility] #: [id number] [facility] HOSPITALCourtney
== END 2019-03-13 16:50 | disposition home or self-care (01) | DRG 292 ==
LOC: ED 22:23 → MEDTELE 03-10 06:47 → OBSVTOIN 03-10 16:47
PROVIDERS: ADMIT Internal Medicine; ATTEND Internal Medicine
DX: I50.21 Acute systolic (congestive) heart failure (principal); E87.3 Alkalosis; I47.2 Ventricular tachycardia; I51.3 Intracardiac thrombosis, not elsewhere classified; E11.9 Type 2 diabetes mellitus without complications; E66.9 Obesity, unspecified; E78.5 Hyperlipidemia, unspecified; K21.9 Gastro-esophageal reflux disease without esophagitis; Z80.7 Family history of other malignant neoplasms of lymphoid, hematopoietic and related tissues; Z68.36 Body mass index [BMI] 36.0-36.9, adult; Z80.1 Family history of malignant neoplasm of trachea, bronchus and lung
CPT/HCPCS: 36415; 71046; 71275; 80048; 80053; 80061; 82803; 83036; 83605; 83735; 83880; 84443; 84484; 85025; 85379; 85652; 86140; 90732; 93005; 93306; 99285; A9270-GY; C8929; J1650; J1940; J3475; J3490; Q9967

== ENCOUNTER → 2019-05-13 | Day surgery (SDC) | payer OTHER ==
[~2019-05-13] MED LIST: Acetaminophen TAB* 325 MG PO PRN; Heparin 2 UNITS/ML IVPREMIX* 2,000 ML IV ONE; Heparin(*) 1000 UNIT/ML 10 ML VIAL CATH LAB IV ONE; Iohexol 350 (CONTRAST) 200 ML MDV IV ONE; Lidocaine 1% INJ* 10 MG/ML 30 ML SDV ONE; Midazolam* 1 MG/ML 5 ML VIAL (5 MG) ONE; NS 0.9% 1000 ML** 1,000 ML IV SCH; VERAPAMIL 2.5 MG/ML 2 ML VIAL ** 5 mg/2 ml ONE; fentaNYL* 50 MCG/ML 2 ML VIAL (100 MCG VIAL) ONE; nitroGLYCERIN DRIP* 25,000 MCG/250 ML BTL ONE
[2019-05-13 12:56] VITALS: BP 119/77
--- NOTE | 2019-05-13 16:30 | CATH ---
"*[facility]* [place] [address] Main: [phone] [email or web address] Cardiac Catheterization Patient: Tyler Camacho : 1960 Study Date: 05/13/2019 Age: 58 Gender: M HR: Height: 70 in /177.8 cm BSA: 2.23 m^2 Weight: 216 lb /98.2 kg BMI: 31.1 kg/m^2 Flamer After Lasting: Adolfo Faith MD Ordering Physician: Adolfo Faith MD Referring Physician: Adolfo Faith MD, Marcell Valdez, --- - Right coronary angiography. - Left coronary angiography. Summary: 1. LAD: Mid-vessel lesion: There is a 50% stenosis. Distal vessel lesion: There is a 50% stenosis. 2. Left circumflex: Distal vessel lesion: There is a 50% stenosis. Ostial lesion: There is a 50% stenosis. 3. Right posterior descending: Proximal vessel lesion: There is a 50% stenosis. Recommendations: Continue medical therapy for non-ischemic cardimyopathy. History: Cardiomyopathy. Risk factors: Hypertension. Diabetes mellitus; on therapy with oral hypoglycemics. Dyslipidemia. Medications: The patient received antianginal therapy in the last two weeks, including: beta blockers. Labs, prior tests, procedures, and surgery: Blood tests: International normalized ratio (INR) of 1.51. Partial thromboplastin time (PTT) of 46.9 sec. Serum potassium (K) of 5 mEq/l. Serum sodium (Na) of 140 mEq/l. Serum creatinine (current admission) of 0.94 mg/dl. Blood urea nitrogen of 15 mg/dl. Glucose of 118 mg/dl. Platelet count of 255 th/ul. White blood cell count (WBC) of 0.01 th/ul. Red blood cell count (RBC) of 5960 th/ul. Hematocrit of 52 %. Hemoglobin (pre-procedure) of 17.7 g/dl. Study data: Study status: Cardiac cath: elective. Location: Catheterization laboratory. Consent: The risks, benefits, and alternatives to the procedure were explained to the patient and/or their healthcare small business representative and written informed consent was obtained. All available pre-procedure labs were reviewed. Height: 177.8 cm. 70 in. Weight: 98.2 kg. 216 lb. Body surface area: 2.23 m^2. Body mass index: 31.1 kg/m^2. Procedure: 1. Initial setup. The patient was brought to the laboratory. Surface ECG leads, blood pressure measurements, and pulse oximetric signals were monitored. A baseline seven lead ECG was recorded. A time out was observed per protocol. 2. Skin preparation. The planned puncture sites were prepped and draped in the usual sterile manner. 3. Local anesthesia. 1% lidocaine was administered. 4. Sedation. Moderate sedation was administered. 5. Local anesthesia. 1% lidocaine (2 ml) was administered. 6. Supplemental oxygen. Oxygen, 2 L/min was administered throughout the procedure. 7. Right radial artery access. A 6F Glidesheath Slender sheath was advanced into the vessel. 8. Selective right coronary angiography. A 5F TIG 4.0 catheter was advanced into the right coronary vessel ostium under fluoroscopic guidance. Contrast was injected. Images were obtained in multiple projections. 9. Selective left coronary angiography. The procedure was attempted using a 6F JL 3.5 catheter, but proper positioning could not be achieved, and the catheter was exchanged for a 6F AL2 catheter which was advanced into the left coronary vessel ostium under fluoroscopic guidance. Contrast was injected using 2 injections. Images were obtained in multiple projections. 10. Right radial artery hemostasis. Vessel closure was achieved with a Regular Vasc Band device. Hemostasis was successfully obtained. Study completion: Minimal estimated blood loss. All catheters inserted during the procedure were removed. There were no apparent complications. Administered medications: VERSED (Midazolam), 2mg, IV. Fentanyl, 25mcg, IV. (Radial) Nitroglycerin, 300mcg, intra-arterially. (Radial) Verapamil, 3mg, intra-arterially. (Radial) Heparin, 3,000units, intra-arterially. NaCl 0.9% , infusion , at a rate of 100 ml/hr. NaCl 0.9% , 250 ml , bolus. Contrast: Omnipaque 350 70 ml (total dose). Omnipaque 350 130 ml (wasted). Radiation: Fluoroscopy dose: 108.3 cGy. Discharge: The patient tolerated the procedure well and was discharged from the lab in stable condition. Findings Coronary arteries: The coronary circulation is co-dominant. Left main: Patent. No significant obstructive disease. LAD: Mid-vessel lesion: There is a 50% stenosis. Distal vessel lesion: There is a 50% stenosis. Left circumflex: Distal vessel lesion: There is a 50% stenosis. Ostial lesion: There is a 50% stenosis. Right coronary: Patent. Right posterior descending: Proximal vessel lesion: There is a 50% stenosis. Hemodynamics: + + + |Stage description |Condition 1 - | + + + |LV pressure s/d, ed |86/5, 10, dP/ov=1093 mm Hg/s| + + + |Arterial pressure s/d (m)|102/67 (82) | + + + Prepared and electronically signed by Adolfo Faith MD 05/13/2019 16:30"
== END | disposition home or self-care (01) ==
LOC: CHICATH 08:05
PROVIDERS: ATTEND Specialist
DX: I42.9 Cardiomyopathy, unspecified (principal); I25.10 Atherosclerotic heart disease of native coronary artery without angina pectoris; I50.20 Unspecified systolic (congestive) heart failure; I10 Essential (primary) hypertension; R94.31 Abnormal electrocardiogram [ECG] [EKG]; I51.3 Intracardiac thrombosis, not elsewhere classified; E11.9 Type 2 diabetes mellitus without complications; Z79.84 Long term (current) use of oral hypoglycemic drugs; E78.5 Hyperlipidemia, unspecified
CPT/HCPCS: 93458; 99156; 99157; C1887; J1644; J2250; J3010

== ENCOUNTER 2019-06-16 12:04 | Observation (INO) | payer OTHER ==
[~2019-06-16 12:04] MED LIST changes: -Acetaminophen TAB* 325 MG PO PRN; +Diazepam TAB(*) 5 MG PO PRN; -Heparin 2 UNITS/ML IVPREMIX* 2,000 ML IV ONE; -Heparin(*) 1000 UNIT/ML 10 ML VIAL CATH LAB IV ONE; -Iohexol 350 (CONTRAST) 200 ML MDV IV ONE; -Lidocaine 1% INJ* 10 MG/ML 30 ML SDV ONE; -Midazolam* 1 MG/ML 5 ML VIAL (5 MG) ONE; -NS 0.9% 1000 ML** 1,000 ML IV SCH; -VERAPAMIL 2.5 MG/ML 2 ML VIAL ** 5 mg/2 ml ONE; -fentaNYL* 50 MCG/ML 2 ML VIAL (100 MCG VIAL) ONE; -nitroGLYCERIN DRIP* 25,000 MCG/250 ML BTL ONE
[2019-06-16] MEDS ORDERED: ceFAZolin* 2 GM* ONE DOSE (Duplex) IVPB (13:00)
[2019-06-16] MEDS ORDERED: ceFAZolin VIAL 1 GM in NS *SYRINGE * * 10 ML ONE (13:00)
[2019-06-16] MEDS ORDERED: Midazolam* 1 MG/ML 5 ML VIAL (5 MG) ONE (13:32)
[2019-06-16] MEDS ORDERED: fentaNYL* 50 MCG/ML 2 ML VIAL (100 MCG VIAL) ONE (13:32)
[2019-06-16] MEDS ORDERED: Naloxone* 0.4 MG/ML 1 ML VIAL ONE (13:33)
[2019-06-16] MEDS ORDERED: Flumazenil* 0.1 MG/ML 5 ML MDV ONE (13:33)
[2019-06-16] MEDS ORDERED: Lidocaine 1% INJ* 10 MG/ML 30 ML SDV ONE ×2 (13:33→13:34)
[2019-06-16] MEDS ORDERED: oxyCODONE/Acetamin 5/325 MG* TAB PO PRN (14:39)
[2019-06-16] MEDS ORDERED: Acetaminophen TAB* 325 MG PO PRN (14:39)
[2019-06-16] MEDS: NS 0.9% 1000 ML** 1,000 ML IV SCH (16:28)
[2019-06-16] MEDS ORDERED: Metoprolol Succinate XL TAB* 25 MG PO SCH (18:00)
[2019-06-16] MEDS: ceFAZolin VIAL(*) 1 GM in NS 0.9% 50 ML* 50 ML IVPB SCH (20:10)
[2019-06-16] MEDS ORDERED: Atorvastatin* 80 MG TAB PO SCH (21:00)
[2019-06-16] MEDS: VALSARTAN PO SCH (22:44)
[2019-06-16] MEDS: SACUBITRIL PO SCH (22:44)
[2019-06-17] MEDS: NS 0.9% 1000 ML** 1,000 ML IV SCH (03:00)
[2019-06-17] MEDS: ceFAZolin VIAL(*) 1 GM in NS 0.9% 50 ML* 50 ML IVPB SCH (05:14)
[2019-06-17] MEDS ORDERED: Digoxin TAB* 0.125 MG PO SCH (09:00)
[2019-06-17] MEDS ORDERED: EMPAGLIFLOZIN 25 MG PO SCH (09:00)
[2019-06-17] MEDS: VALSARTAN PO SCH (09:18)
[2019-06-17] MEDS: SACUBITRIL PO SCH (09:18)
--- NOTE | 2019-06-17 09:27 | OP ---
DATE OF OPERATION: 06/16/19 - ROOM #444 DATE OF : 60 SURGEON: Adolfo Faith MD PRE-OP DIAGNOSIS: Non-ischemic cardiomyopathy, sustained ventricular tachycardia. POST-OP DIAGNOSIS: OPERATIVE PROCEDURE: Dual-chamber ICD implantation. INDICATIONS: The patient is a 58-year-old gentleman who was admitted to the hospital this past summer with congestive heart failure. He was found to have a severely reduced LV systolic function, ejection fraction of 20% with a thrombus in his left ventricle. The patient was treated medically with anticoagulation and appropriate heart failure medications. A repeat echocardiogram showed an ejection fraction of 30%, resolution of his left ventricular thrombus. The patient underwent a cardiac MRI and a cardiac catheterization, both of which were unremarkable. The patient had a life vest on because of his severely reduced LV systolic. His vest revealed episodes of supraventricular tachycardia and episodes of ventricular tachycardia. His longest episode was 58 beats of ventricular tachycardia at 160 beats per minute. Permanent ICD implantation was recommended. Dual chamber device was recommended because of his supraventricular tachycardia. DESCRIPTION OF PROCEDURE: The patient was brought to the procedure room in a fasting state. Informed consent had been obtained prior to the procedure. All labs were reviewed. The patient was placed supine on the procedure table, his left deltopectoral area was cleaned and draped in the usual fashion. 1% lidocaine was used for local anesthesia. Under ultrasound guidance, the axillary vein was entered by a Seldinger technique and a guidewire was placed and a second guidewire was placed in the same technique. A 4 cm incision was made in the pectoral area, blunt dissection was carried down to the pectoral fascia. A pocket was fashioned for the ICD. Over the guidewire, a 9-Yemeni sheath introducer was placed, through which a right ventricular ICD lead was advanced to the RV apex. The right ventricular lead is a Medtronic Model 6935M serial number [id number], had an R-wave sensitivity of 13, impedance 1003 Ohms, threshold 0.8 Volts at 0.5 msec. The ventricular lead was sutured to the pectoral fascia. Over the second guidewire a 7- [place]i sheath introducer was placed through which a right atrial lead was advanced to the high right atrium. The right atrial lead is a Medtronic Model 5076 serial number [id number], had a P-wave sensitivity of 1.7, impedance 588 Ohms, threshold 0.7 Volts at 0.5 msec. The atrial lead was sutured to the pectoral fascia. A generator was attached appropriately to the atrial ventricular leads. Pocked was flushed. The generator was placed into pocket. The surgical incision was closed in 3 layers. The patient tolerated the procedure well with no complications. The generator is a [employer] Model [id number] serial number [id number]. [id number]/[facility] #: [id number] MTDD
[2019-06-17 09:57] VITALS: BP 137/85
--- NOTE | 2019-06-17 12:41 | DS ---
CC: Dr. Dale * DISCHARGE SUMMARY: DATE OF ADMISSION: 06/16/19 DATE OF DISCHARGE: Pending no complications, 06/17/19. ATTENDING PHYSICIAN: Dr. Adolfo Faith, Cardiology.* (DICTATED BY IRAIS PINA NP) PRIMARY PHYSICIAN: Dr. Dale. PRIMARY [employer] WORKER: Dr. Adolfo Faith. ADMITTING DIAGNOSES: 1. Sustained monomorphic ventricular tachycardia, here for elective dual- chamber ICD. 2. Paroxysmal supraventricular tachycardia, to have dual-chamber ICD. 3. History of nonischemic cardiomyopathy, LVEF 34%, on metoprolol, Entresto, Jardiance, digoxin therapy. 4. Diabetes, on Jardiance and metformin therapy. DISCHARGE DIAGNOSES: 1. Sustained ventricular tachycardia, paroxysmal supraventricular tachycardia, status post biventricular ICD implant, 06/16/19, with Dr. Adolfo Faith. The patient will go home on a 3-day course of Keflex therapy, follow up on 06/25/19 for wound inspection. 2. History of nonischemic cardiomyopathy, LVEF 34%, on Entresto, metoprolol, and digoxin therapy in addition to Jardiance therapy. The patient was inquiring about medication assistance for Entresto. We will speak to our nursing staff at [facility] to coordinate patient assistance. PROCEDURES PERFORMED: The patient had a biventricular ICD implant on 06/16/[address] Adolfo Faith due to sustained ventricular tachycardia with PSVT prior to VT. The right ventricular lead is a Medtronic model 6935M, serial number [id number]. The right atrial lead is a Medtronic model 5076, serial number [id number], generator is a Medtronic model [id number], serial number [id number]. Complications none. COURSE OF HOSPITAL STAY: This is a pleasant 58-year-old gentleman with a notable history of nonischemic cardiomyopathy, LVEF 34% based on MRI from June of 2019, who had a rate alarm while wearing his LifeVest that revealed a period of SVT followed by a 57-beat count run of monomorphic VT. It broke on its own and he did not require LifeVest output. He is compliant with medications. Thus, he saw Dr. Adolfo Faith on 06/11/19 and was offered dual- chamber ICD given period of SVT that occurred prior to the monomorphic VT. Prior to having procedure performed, he had basic blood work on 05/07/19, sodium was 140, potassium 5, chloride 106, carbon dioxide 28, BUN 15, creatinine 0.94, glucose 118, INR 1.5. He underwent the above procedure with no complications. He was monitored overnight on . There have been no events on telemetry. Device interrogation this morning was reviewed. His right atrial lead pacing threshold is 0.5 V at 0.4 milliseconds, right ventricular lead pacing threshold 0.5 V at 0.4 milliseconds. There was no episodes of AFib or VT. Normal ICD function. Device site was inspected and dressing was removed. There is no pocket hematoma. Device site is nontender to palpation. No inflammation, no oozing. Most recent set of vital signs: Temperature is 97.8, pulse 87, respirations 19, oxygenation 94% on room air, blood pressure 137 /85. Chest x-ray was updated this morning. Per radiology report, there was no pneumothorax, pacer leads are in place. He is to be discharged home in stable condition. DISCHARGE MEDICATIONS: Include: 1. Entresto 24/26 mg p.o. b.i.d. 2. Metoprolol 25 mg a day. 3. Digoxin 0.125 mg a day. 4. Atorvastatin 80 mg p.o. q.h.s. 5. Keflex 250 mg p.o. t.i.d. x3 days and stop. 6. Jardiance 25 mg a day. 7. Metformin as directed. 8. Lipitor 80 mg p.o. q.h.s. DISCHARGE FOLLOWUP APPOINTMENTS: The patient is to see Dr. Dale in 7 to 10 days. The patient is to see Dr. Adolfo Faith on 06/25/19 at 4 p.m. at [facility] office location. OUTPATIENT LABS TO BE OBTAINED: None. RESTRICTIONS: The patient may shower starting tomorrow 06/18/19. He was advised not to soak left anterior device site wound or take a bath. He is instructed to remove dressing daily. He was advised to seek medical evaluation or contact our practice should he notice any oozing, inflammation, swelling, or pain involving device site. The patient is to wear left arm immobilizer as directed. He is aware not to lift left arm above the shoulder for the next 6 weeks. He is advised not to lift more than 5 pounds until further directed. DRIVING RESTRICTIONS: No driving until he is advised in followup 06/25/19. Dr. Adolfo Faith has personally seen and examined the patient and agrees with the above assessment and plan. IRAIS PINA NP [id number]/[facility] #: [id number] DURAN
== END 2019-06-17 11:26 | disposition home or self-care (01) ==
LOC: CHICATH 12:04 → MEDTELE 14:39
PROVIDERS: ADMIT Specialist; ATTEND Specialist
DX: I10 Essential (primary) hypertension (principal); I42.9 Cardiomyopathy, unspecified; I47.2 Ventricular tachycardia; I47.1 Supraventricular tachycardia; E11.9 Type 2 diabetes mellitus without complications; E78.5 Hyperlipidemia, unspecified; R94.31 Abnormal electrocardiogram [ECG] [EKG]; Z79.84 Long term (current) use of oral hypoglycemic drugs; Z79.899 Other long term (current) drug therapy; I50.9 Heart failure, unspecified
CPT/HCPCS: 33249; 71045; 71046; 93005; 96360; 96365; 99156; 99157; A9270-GY; C1721; C1892; C1895; C1898; G0378; J0690; J2250; J2310; J3010